=== PATIENT | female | born 1995 | race Asian ===

== ENCOUNTER 2020-02-09 16:36 | Observation (INO) | payer BC, OTHER ==
[~2020-02-09] VITALS: Ht 162.6 cm; Wt 68.1 kg
[2020-02-09 18:19] LABS: BILIRUBIN,URINE NEGATIVE (NEG); CLARITY,URINE CLEAR; COLOR,URINE YELLOW; NITRITE,URINE NEGATIVE (NEG); PROTEIN,URINE NEGATIVE (NEG-TRACE); UROBILINOGEN,URINE 0.2 mg/dL (0.2 mg/dL)
--- NOTE | 2020-02-09 18:19 | ED.ADGEN ---
Past Medical History Past Medical History: Asthma, Migraines Past Surgical History: No Surgical History Smoking Status: Never Smoker Alcohol Use: None General Adult EDM: Chief Complaint: ABDOMINAL PAIN HPI: HPI: Patient is a 25 year old female who presents the emergency department with complaints of right-sided abdominal pain that is worse with movement and palpation since early this morning. Pt awoke at 0700 with the pain. Patient denies any fever, cough, shortness of breath, chest pain, palpitations, sore throat, body aches, fatigue, nausea, vomiting, diarrhea, or sore throat. She denies any dysuria, hematuria, or increased urinary frequency. The patient states that [place] [id number] she did have a painful bowel movement that only produced small firm pieces of stool. She denies any rectal bleeding, back pain, or irregular vaginal discharge. She reports her last menstrual cycle was on January 192019, she denies using any control, she is trying to get . Patient reports that eating and drinking does not make the pain better or worse. She currently rates her pain a 6 out of 10 on the pain scale, she denies any alleviating factors, she has tried taking Pepto-Bismol with no relief in her symptoms. The pain is worse with palpation and movement. Review of Systems: Review of Systems: Complete ROS is negative unless otherwise noted in HPI. Current Medications: Current Medications Medications (Trade) Dose Ordered Sig/Narendra Start Time Stop Time Status Last Admin Dose Admin Fentanyl Citrate (Fentanyl 2ml Vial) 50 mcg 1X ONCE 02/09/20 22:30 02/09/20 22:31 Ondansetron HCl (Zofran) 4 mg PRN Q8HRS PRN 02/09/20 22:30 02/10/20 22:29 Sodium Chloride 1,000 ml @ 1,000 mls/hr 1X ONCE 02/09/20 19:00 02/09/20 19:59 DC 02/09/20 20:28 1,000 MLS/HR Allergies: Allergies: Allergies Coded Allergies Type Severity Reaction Last Updated Verified No Known Drug Allergies 02/09/20 No Physical Exam: PE: See Above Constitutional: Well developed, well nourished, no acute distress, non-toxic appearance. [] HENT: Normocephalic, atraumatic, bilateral external ears normal, nose normal. [] Eyes: PERRLA, EOMI, conjunctiva normal, no discharge. [] Neck: Normal range of motion, no stridor. [] Cardiovascular:Heart rate regular rhythm Lungs & Thorax: Respirations even and unlabored, no retractions, no respiratory distress Abdomen: soft, right upper quadrant and right lower quadrant tenderness to palpation, no rebound tenderness, no guarding, no palpable masses Back: No CVA tenderness Skin: Warm, dry, no erythema, no rash. [] Extremities: No cyanosis, ROM intact, no edema. [] Neurologic: Alert and oriented X 3, no focal deficits noted. [] Psychologic: Affect normal, judgement normal, mood normal. [] Current Patient Data: Labs: Laboratory Tests Test 02/09/20 17:51 02/09/20 17:58 02/09/20 18:37 02/09/20 20:48 Urine Collection Type Unknown Urine Color Yellow Urine Clarity Clear Urine pH 7.0 (<5.0-8.0) Urine Specific [place] 1.010 (1.000-1.030) Urine Protein Negative mg/dL (NEG-TRACE) Urine Glucose (UA) Negative mg/dL (NEG) Urine Ketones (Stick) Negative mg/dL (NEG) Urine Blood Negative (NEG) Urine Nitrite Negative (NEG) Urine Bilirubin Negative (NEG) Urine Urobilinogen Dipstick 0.2 mg/dL (0.2 mg/dL) Urine Leukocyte Esterase Negative (NEG) Urine RBC 0 /HPF (0-2) Urine WBC 0 /HPF (0-4) Urine Squamous Epithelial Cells Few /LPF Urine Bacteria 0 /HPF (0-FEW) POC Urine HCG, Qualitative Hcg negative (Negative) White Blood Count 6.5 x10^3/uL (4.0-11.0) 7.5 x10^3/uL (4.0-11.0) Red Blood Count 3.94 x10^6/uL (3.50-5.40) 3.61 x10^6/uL (3.50-5.40) Hemoglobin 11.4 g/dL (12.0-15.5) L 10.6 g/dL (12.0-15.5) L Hematocrit 34.1 % (36.0-47.0) L 31.5 % (36.0-47.0) L Mean Corpuscular Volume 87 fL (79-100) 87 fL (79-100) Mean Corpuscular Hemoglobin 29 pg (25-35) 29 pg (25-35) Mean Corpuscular Hemoglobin Concent 34 g/dL (31-37) 34 g/dL (31-37) Red Cell Distribution Width 12.7 % (11.5-14.5) 13.0 % (11.5-14.5) Platelet Count 188 x10^3/uL (140-400) 172 x10^3/uL (140-400) Neutrophils (%) (Auto) 50 % (31-73) 57 % (31-73) Lymphocytes (%) (Auto) 41 % (24-48) 34 % (24-48) Monocytes (%) (Auto) 8 % (0-9) 8 % (0-9) Eosinophils (%) (Auto) 0 % (0-3) 0 % (0-3) Basophils (%) (Auto) 0 % (0-3) 1 % (0-3) Neutrophils # (Auto) 3.2 x10^3/uL (1.8-7.7) 4.3 x10^3/uL (1.8-7.7) Lymphocytes # (Auto) 2.7 x10^3/uL (1.0-4.8) 2.5 x10^3/uL (1.0-4.8) Monocytes # (Auto) 0.5 x10^3/uL (0.0-1.1) 0.6 x10^3/uL (0.0-1.1) Eosinophils # (Auto) 0.0 x10^3/uL (0.0-0.7) 0.0 x10^3/uL (0.0-0.7) Basophils # (Auto) 0.0 x10^3/uL (0.0-0.2) 0.0 x10^3/uL (0.0-0.2) Sodium Level 138 mmol/L (136-145) Potassium Level 3.5 mmol/L (3.5-5.1) Chloride Level 104 mmol/L (98-107) Carbon Dioxide Level 27 mmol/L (21-32) Anion Gap 7 (6-14) Blood Urea Nitrogen 8 mg/dL (7-20) Creatinine 0.8 mg/dL (0.6-1.0) Estimated GFR (Cockcroft-Gault) 86.7 BUN/Creatinine Ratio 10 (6-20) Glucose Level 81 mg/dL (70-99) Calcium Level 8.4 mg/dL (8.5-10.1) L Total Bilirubin 0.9 mg/dL (0.2-1.0) Aspartate Amino Transferase (AST) 17 U/L (15-37) Alanine Aminotransferase (ALT) 23 U/L (14-59) Alkaline Phosphatase 52 U/L (46-116) Total Protein 6.7 g/dL (6.4-8.2) Albumin 3.5 g/dL (3.4-5.0) Albumin/Globulin Ratio 1.1 (1.0-1.7) Lipase 88 U/L (73-393) Laboratory Tests 02/09/20 18:37 02/09/20 20:48 Laboratory Tests 02/09/20 18:37 Vital Signs: Vital Signs Date Time Temp Pulse Resp B/P (MAP) Pulse Ox O2 Delivery O2 Flow Rate FiO2 02/09/20 20:41 18 100 Room Air 02/09/20 17:38 98.4 107 110/72 (85) 98.4 EKG: EKG: [] Heart Score: Risk Factors: Risk Factors: DM, Current or recent (<one month) smoker, HTN, HLP, family history of CAD, obesity. Risk Scores: Score 0 - 3: 2.5% MACE over next 6 weeks - Discharge Home Score 4 - 6: 20.3% MACE over next 6 weeks - Admit for Clinical Observation Score 7 - 10: 72.7% MACE over next 6 weeks - Early Invasive Strategies Radiology/Procedures: Radiology/Procedures: [][facility] [address] [place] [address] IMAGING REPORT Signed PATIENT: LEE ANN HENSLEY ACCOUNT: [id number] : 1995 LOCATION: ER AGE: 25 SEX: F EXAM STATUS: REG ER ORD. PHYSICIAN: NURY ROBERT APRN REASON: R sided abd pain, constipation PROCEDURE: CT ABDOMEN PELVIS WO CONTRAST CT ABDOMEN+PELVIS WO INDICATION: Reason: R sided abd pain, constipation / Spl. Instructions: / History: EXAM: Noncontrast CT of the abdomen and pelvis. Coronal and sagittal reformatted images were performed. PQRS compliance statement: One or more of the following individualized dose reduction techniques were utilized for this examination: 1. Automated exposure control 2. Adjustment of the mA and/or kV according to patient size 3. Use of iterative reconstruction technique COMPARISON: None FINDINGS: Moderate amount of high attenuation pelvic fluid, extending up along the right paracolic greater than left paracolic gutters. Lower chest: The visualized lower lungs are aerated. No pleural or pericardial effusion. ABDOMEN: Liver: The noncontrast liver is homogeneous in attenuation. Gallbladder and biliary: Normal gallbladder without radiopaque stone. Normal caliber bile ducts. Spleen: Normal spleen. Pancreas: The noncontrast pancreas is homogeneous in attenuation without peripancreatic inflammatory changes. Adrenal glands: Normal adrenal glands. Kidneys and ureters: No opaque urinary calculi. Normal kidneys and ureters. GI tract: The stomach is decompressed and poorly evaluated. Normal caliber small bowel and colon. Normal appendix. Vascular structures: Normal caliber abdominal aorta. Lymph nodes: No lymphadenopathy in the abdomen or pelvis. PELVIS: Genitourinary system: Urinary bladder is decompressed. Ureters and ovaries are poorly characterized due to pneumoperitoneum SKELETAL STRUCTURES AND SOFT TISSUES: No fracture or destructive lesion in the visualized skeleton. IMPRESSION: Moderate amount of hemoperitoneum, predominantly in the pelvis but extending up along the paracolic gutters. Considerations would include ruptured hemorrhagic ovarian cyst or ruptured ectopic . FOR INTERNAL CODING PURPOSES Critical result: Findings discussed with the emergency department at 02/09/2020 6:55 PM. RESULT CODE: (C) Electronically signed by: Verito Elder MD (02/09/2020 6:55 PM) [facility] DICTATED and SIGNED BY: VERITO ELDER MD DATE: 02/09/20 [id number] 0 Course & Med Decision Making: Course & Med Decision Making Pertinent Labs and Imaging studies reviewed. (See chart for details) 25 year old female who presents to the ER with complaints of R sided abdominal pain since 0700, recent constipation, and hard BM at 1000 this morning. workup includes: abd/pel CT, labs, UA. UCG Pt was given 1 L of NS, 4 mg of zofran, and 25 mcg of fentanyl UA was unremarkable, UCG was negative. blood work is pending, CT abd/pel is pending,. 1899- Report given to Dr. Rubalcava at this time. Pt's VSS at this time. I advised pt that Dr. Rubalcava would be taking over her care at this time. Discussed with Dr. 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 Dragon Disclaimer: Dragon Disclaimer: This electronic medical record was generated, in whole or in part, using a voice recognition dictation system. Departure Departure Impression: Primary Impression: Hemoperitoneum Additional Impressions: Pelvic pain Abdominal pain Disposition: 09 ADMITTED INPT THIS HOSP Condition: STABLE Referrals: MODESTA TABOR MD (PCP) Problem Qualifiers NURY ROBERT APRN Feb 09, 2020 18:19 PAUL RUBALCAVA DO Feb 09, 2020 22:29
[2020-02-09 18:27] LABS: BACTERIA,URINE 0 /HPF (0-FEW); RBC,URINE 0 /HPF (0-2); WBC,URINE 0 /HPF (0-4)
[2020-02-09 18:54] LABS: BASO % 0 % (0-3); EOS % 0 % (0-3); HEMATOCRIT 34.1 % (36.0-47.0); HEMOGLOBIN 11.4 g/dL (12.0-15.5); LYMPH # 2.7 x10^3/uL (1.0-4.8); LYMPH % 41 % (24-48); MEAN CORPUSCULAR HEMOGLOBIN 29 pg (25-35); MEAN CORPUSCULAR HGB CONC 34 g/dL (31-37); MEAN CORPUSCULAR VOLUME 87 fL (79-100); MONO # 0.5 x10^3/uL (0.0-1.1); MONO % 8 % (0-9); NEUT # 3.2 x10^3/uL (1.8-7.7); NEUT % 50 % (31-73); PLATELET COUNT 188 x10^3/uL (140-400); RED BLOOD COUNT 3.94 x10^6/uL (3.50-5.40); RED CELL DISTRIBUTION WIDTH 12.7 % (11.5-14.5); WHITE BLOOD COUNT 6.5 x10^3/uL (4.0-11.0)
--- NOTE | 2020-02-09 18:58 | RAD ---
CT ABDOMEN+PELVIS WO INDICATION: Reason: R sided abd pain, constipation / Spl. Instructions: / History: EXAM: Noncontrast CT of the abdomen and pelvis. Coronal and sagittal reformatted images were perform ed. PQRS compliance statement: One or more of the following individualized dose reduction techniques were utilized for this examinat ion: 1. Automated exposure control 2. Adjustment of the mA and/or kV according to patient size 3. Use of iterative reconstruction technique COMPARISON: None FINDINGS: Moderate amount of high attenuation pelvic fluid, extending up along the right paracolic greater than left paracolic gutters. Lower chest: The visualized lower lungs are aerated. No pleural or pericardial effusion. ABDOMEN: Liver: The noncontrast liver is homogeneous in attenuation. Gallbladder and biliary: Normal gallbladder without radiopaque stone. Normal caliber bile ducts. Spleen: Normal spleen. Pancreas: The noncontrast pancreas is homogeneous in attenuation without peripancreatic inflammatory changes. Adrenal glands: Normal adrenal glands. Kidneys and ureters: No opaque urinary calculi. Normal kidneys and ureters. GI tract: The stomach is decompressed and poorly evaluated. Normal caliber small bowel and colon. Nor mal appendix. Vascular structures: Normal caliber abdominal aorta. Lymph nodes: No lymphadenopathy in the abdomen or pelvis. PELVIS: Genitourinary system: Urinary bladder is decompressed. Ureters and ovaries are poorly characterized d ue to pneumoperitoneum SKELETAL STRUCTURES AND SOFT TISSUES: No fracture or destructive lesion in the visualized skeleton. IMPRESSION: Moderate amount of hemoperitoneum, predominantly in the pelvis but extending up along the paracolic g utters. Considerations would include ruptured hemorrhagic ovarian cyst or ruptured ectopic . FOR INTERNAL CODING PURPOSES Critical result: Findings discussed with the emergency department at 02/09/2020 6:55 PM. RESULT CODE: (C) Electronically signed by: Lg Elder MD (02/09/2020 6:55 PM) [facility]
[2020-02-09] MEDS ORDERED: IV NORMAL SALINE 1000ML BAG 1,000 ML IV ONE ×2 (19:00)
[2020-02-09] MEDS ORDERED: fentaNYL PF VIAL 100 MCG/2 ML VIAL IV ONE (19:00)
[2020-02-09] MEDS ORDERED: ONDANSETRON PF 4 MG/2 ML VIAL. IV ONE (19:00)
[2020-02-09 19:24] LABS: CALCIUM 8.4 mg/dL (8.5-10.1); CREATININE 0.8 mg/dL (0.6-1.0); GFR 86.7; POTASSIUM 3.5 mmol/L (3.5-5.1)
[2020-02-09 19:29] LABS: ALBUMIN 3.5 g/dL (3.4-5.0); ALBUMIN/GLOBULIN RATIO 1.1 (1.0-1.7); TOTAL BILIRUBIN 0.9 mg/dL (0.2-1.0); TOTAL PROTEIN 6.7 g/dL (6.4-8.2)
[2020-02-09] MEDS ORDERED: fentaNYL PF VIAL 100 MCG/2 ML VIAL IVP ONE ×2 (20:45→22:30)
[2020-02-09 20:59] LABS: BASO % 1 % (0-3); EOS % 0 % (0-3); HEMATOCRIT 31.5 % (36.0-47.0); HEMOGLOBIN 10.6 g/dL (12.0-15.5); LYMPH # 2.5 x10^3/uL (1.0-4.8); LYMPH % 34 % (24-48); MEAN CORPUSCULAR HEMOGLOBIN 29 pg (25-35); MEAN CORPUSCULAR HGB CONC 34 g/dL (31-37); MEAN CORPUSCULAR VOLUME 87 fL (79-100); MONO # 0.6 x10^3/uL (0.0-1.1); MONO % 8 % (0-9); NEUT # 4.3 x10^3/uL (1.8-7.7); NEUT % 57 % (31-73); PLATELET COUNT 172 x10^3/uL (140-400); RED BLOOD COUNT 3.61 x10^6/uL (3.50-5.40); WHITE BLOOD COUNT 7.5 x10^3/uL (4.0-11.0)
[2020-02-09] MEDS ORDERED: ONDANSETRON PF 4 MG/2 ML VIAL. IV PRN ×2 (22:30→23:30)
[2020-02-09] MEDS ORDERED: SURGICEL HEMOSTAT 4X8 EACH. ONE (23:06)
[2020-02-09] MEDS ORDERED: ONDANSETRON PF 4 MG/2 ML VIAL. ONE (23:07)
[2020-02-09] MEDS ORDERED: LIDOCAINE 2% PF 5 ML VIAL. ONE (23:07)
[2020-02-09] MEDS ORDERED: PROPOFOL 10 MG/ML (20ML) VIAL. IV ONE (23:07)
[2020-02-09] MEDS ORDERED: DEXAMETHASONE SOD PHOS 4 MG/ML VIAL ONE (23:07)
[2020-02-09] MEDS ORDERED: MIDAZOLAM HCL/PF 2 MG/2 ML VIAL. ONE (23:07)
[2020-02-09] MEDS ORDERED: ROCURONIUM 50 MG/5 ML VIAL. ONE (23:08)
[2020-02-09] MEDS ORDERED: SUCCINYLCHOLINE 200 MG/10 ML VIAL. ONE (23:08)
[2020-02-09] MEDS ORDERED: fentaNYL PF VIAL 100 MCG/2 ML VIAL ONE (23:11)
--- NOTE | 2020-02-09 23:18 | RAD ---
INDICATION: Reason: RT side abd pain;moderate amount of free fluid in abd area;Pelvic Pain / Spl. Ins tructions: / History: COMPARISON: CT from same day TECHNIQUE: Grayscale and color ultrasound images uterus and adnexa. FINDINGS: Uterus: 76 x 39 x 48 mm. Endometrial Stripe: 8 mm. The bilateral ovaries are not seen. Large free fluid is seen with complex component. IMPRESSION: * Large amount of free fluid is seen within the pelvis correlating with the hemoperitoneum seen on CT. The bilateral ovaries are not seen. Electronically signed by: Matt Maldonado MD (02/09/2020 11:15 PM) [id number]
[2020-02-09] MEDS ORDERED: ceFAZolin SODIUM IV Push 1 GM VIAL. IVP ONE (23:27)
[2020-02-09] MEDS ORDERED: fentaNYL PF VIAL 100 MCG/2 ML VIAL IV PRN (23:30)
[2020-02-09] MEDS ORDERED: MORPHINE SULFATE 2 MG/ML VIAL. IV PRN (23:30)
[2020-02-09] MEDS ORDERED: PROCHLORPERAZINE 10 MG/2 ML VIAL. IV PRN (23:30)
[2020-02-09] MEDS ORDERED: BUPIVACAINE-EPI 0.25%-1:200000 MPF 30 ML VIAL. INJ ONE (23:30)
[2020-02-09] MEDS ORDERED: LIDOCAINE 1% PF 2 ML VIAL. ID PRN (23:30)
[2020-02-09] MEDS ORDERED: IV RINGERS,LACTATED 1000ML 1,000 ML IV SCH (23:30)
[2020-02-09] MEDS ORDERED: HYDROmorphone 2 MG/ML VIAL IV PRN (23:30)
[2020-02-10] VITALS (10 sets, daily range): BP systolic 81–126; BP diastolic 42–77
[2020-02-10] MEDS ORDERED: SEVOFLURANE 61 TO 120 MINUTES. IH ONE (00:23)
[2020-02-10] MEDS ORDERED: FAMOTIDINE 20 MG/2 ML VIAL ONE (00:23)
[2020-02-10] MEDS ORDERED: KETOROLAC 30 MG/ML VIAL. ONE (00:36)
--- NOTE | 2020-02-10 00:40 | PDOC ---
BRIEF OPERATIVE NOTE Date: Feb 10, 2020 Pre-Op Diagnosis Ruptured Ovarian Cyst Post-Op Diagnosis ADDY Cyst Ruptured Procedure Performed [facility] Cystectomy Surgeon Dr. Nguyen Anesthesia Type: General Blood Loss 500 ml Specimens Obtained ADDY Cyst wall Findings hemoperitoneum of 500 ml, ADDY Cyst with active bleeding; nml fallopian tubes missy., nml ROV, nml size uterus Complications none Operative Note see dictation ROSALIE NGUYEN Jr, MD Feb 10, 2020 00:40
[2020-02-10] MEDS ORDERED: 0.9 % SODIUM CHLORIDE 10 ML DISP.SYRIN. IV PRN (00:45)
[2020-02-10] MEDS ORDERED: ONDANSETRON PF 4 MG/2 ML VIAL. IV PRN (00:45)
[2020-02-10] MEDS ORDERED: DEXTROSE 50% 25 GM / 50ML DISP.SYRIN. IV PRN (00:45)
[2020-02-10] MEDS ORDERED: CALCIUM CARBONATE 500 MG TAB.CHEW PO PRN (00:45)
[2020-02-10] MEDS ORDERED: PROCHLORPERAZINE 10 MG/2 ML VIAL. IV PRN (00:45)
[2020-02-10] MEDS ORDERED: ZOLPIDEM 5 MG TABLET. PO PRN (00:45)
[2020-02-10] MEDS ORDERED: oxyCODONE/APAP 5/325 1 TAB TABLET PO PRN (00:45)
[2020-02-10] MEDS ORDERED: diphenhydrAMINE 50 MG/ML VIAL IV PRN (00:45)
[2020-02-10] MEDS ORDERED: SIMETHICONE 80 MG TAB.CHEW PO PRN (00:45)
[2020-02-10] MEDS ORDERED: diphenhydrAMINE HCL 25 MG CAPSULE PO PRN (00:45)
--- NOTE | 2020-02-10 00:52 | OP ---
DATE OF SURGERY: PREOPERATIVE DIAGNOSIS: Ruptured ovarian cyst. POSTOPERATIVE DIAGNOSIS: Left ovarian ruptured cyst. PROCEDURE: Laparoscopic left ovarian cystectomy. SURGEON: Luciano Nguyen MD ANESTHESIA: GETA. ESTIMATED BLOOD LOSS: 500 mL, mostly of blood clot already in the abdomen. COMPLICATIONS: None. FINDINGS: Hemoperitoneum of about 500 mL, left ovarian cyst with active bleeding. Normal fallopian tubes bilaterally, normal right ovary, normal size uterus. SUMMARY: This is a 25-year-old 0 with severe abdominal pain that continued throughout the day. She was found to have large hemoperitoneum via a CT scan and abdominal ultrasound. The patient was counseled on risks, benefits and expectations of ovarian cystectomy and removal of the hemoperitoneum and voiced clear understanding to proceed. DESCRIPTION OF PROCEDURE: The patient was taken to surgery suite and placed in dorsal lithotomy position, and prepped with Betadine solution for vaginal prep and ChloraPrep for abdominal prep. After adequate anesthesia, a sponge stick was placed vaginally. Attention was now placed on the abdomen. A small transverse skin incision was made just below the umbilicus with a scalpel. The Veress needle was then placed through the infraumbilical incision site. The abdomen was allowed to insufflate up to 1-1/2 liters CO2 gas. The Veress needle was then removed, 5 mm trocar was placed. Scope was positioned. There was a large amount of hemoperitoneum about 500 mL. Two additional incisions made in the left lower quadrant in which a 5-mm trocar and an 8-mm trocar were placed. With the aid of suction irrigation, the blood clot was all removed. The right fallopian tube and ovary appeared normal. Left fallopian tube appeared normal. Left ovary indicated about 2 cm size cyst with active bleeding. The cyst wall was excised using the EndoShears. The remaining portion of the ovarian cyst wall was fulgurated using monopolar cautery and was then hemostatic. Suction irrigation was utilized to verify good hemostasis. A small amount of normal saline was left in posterior cul-de-sac. The trocars were then removed under direct visualization. The abdomen was allowed to deflate as much as possible along with mechanical manipulation. The three skin incisions were reapproximated using 4-0 Vicryl suture in subcuticular manner. A 0.25% Marcaine with epinephrine was injected at each incision site. The sponge stick was removed. The patient tolerated the procedure well and was taken to recovery room in stable condition. Sponge and needle count correct x 3. LUCIANO NGUYEN MD DR: NGOZI/aliya JOB#: [id number] / [id number]
[2020-02-10] MEDS: fentaNYL PF VIAL 100 MCG/2 ML VIAL IV PRN ×2 (01:03→01:15)
[2020-02-10] MEDS: KETOROLAC 30 MG/ML VIAL. IV PRN ×2 (05:40→12:36)
[2020-02-10] MEDS ORDERED: GABAPENTIN 300 MG CAPSULE. PO SCH (06:00)
[2020-02-10 09:35] LABS: BASO % 0 % (0-3); EOS % 0 % (0-3); HEMATOCRIT 31.4 % (36.0-47.0); HEMOGLOBIN 10.5 g/dL (12.0-15.5); LYMPH % 17 % (24-48); MEAN CORPUSCULAR HEMOGLOBIN 29 pg (25-35); MEAN CORPUSCULAR HGB CONC 33 g/dL (31-37); MEAN CORPUSCULAR VOLUME 87 fL (79-100); MONO # 0.2 x10^3/uL (0.0-1.1); MONO % 3 % (0-9); NEUT # 5.1 x10^3/uL (1.8-7.7); NEUT % 81 % (31-73); PLATELET COUNT 167 x10^3/uL (140-400); RED CELL DISTRIBUTION WIDTH 13.1 % (11.5-14.5); WHITE BLOOD COUNT 6.3 x10^3/uL (4.0-11.0)
--- NOTE | 2020-02-10 12:39 | PDOC ---
SURGICAL PROGRESS NOTE DATE: 02/10/20 TIME: 12:38 Subjective Pt. feeling well. Steristrip reapplied to LLQ incision site. Vital Signs Vital Signs Date Time Temp Pulse Resp B/P (MAP) Pulse Ox O2 Delivery O2 Flow Rate FiO2 02/10/20 10:05 98.1 85 18 95/54 (68) 99 Room Air 98.1 02/10/20 01:03 10.0 I&O Intake and Output 02/10/20 07:00 Intake Total 2500 ml Output Total 950 ml Balance 1550 ml Intake IV Total 2500 ml Output Urine Total 450 ml Estimated Blood Loss 500 ml PATIENT HAS A REYES: No General: Alert, Oriented X3, Cooperative HEENT: Atraumatic Lungs: Clear to auscultation Heart: Regular rate Abdomen: Normal bowel sounds, Soft, No tenderness, No masses Psych/Mental Status: Mental status NL Labs Laboratory Tests Test 02/09/20 17:51 02/09/20 17:58 02/09/20 18:37 02/09/20 20:48 Urine Collection Type Unknown Urine Color Yellow Urine Clarity Clear Urine pH 7.0 (<5.0-8.0) Urine Specific [place] 1.010 (1.000-1.030) Urine Protein Negative mg/dL (NEG-TRACE) Urine Glucose (UA) Negative mg/dL (NEG) Urine Ketones (Stick) Negative mg/dL (NEG) Urine Blood Negative (NEG) Urine Nitrite Negative (NEG) Urine Bilirubin Negative (NEG) Urine Urobilinogen Dipstick 0.2 mg/dL (0.2 mg/dL) Urine Leukocyte Esterase Negative (NEG) Urine RBC 0 /HPF (0-2) Urine WBC 0 /HPF (0-4) Urine Squamous Epithelial Cells Few /LPF Urine Bacteria 0 /HPF (0-FEW) Bedside Urine HCG, Qualitative Hcg negative (Negative) White Blood Count 6.5 x10^3/uL (4.0-11.0) 7.5 x10^3/uL (4.0-11.0) Red Blood Count 3.94 x10^6/uL (3.50-5.40) 3.61 x10^6/uL (3.50-5.40) Hemoglobin 11.4 g/dL (12.0-15.5) 10.6 g/dL (12.0-15.5) Hematocrit 34.1 % (36.0-47.0) 31.5 % (36.0-47.0) Mean Corpuscular Volume 87 fL (79-100) 87 fL (79-100) Mean Corpuscular Hemoglobin 29 pg (25-35) 29 pg (25-35) Mean Corpuscular Hemoglobin Concent 34 g/dL (31-37) 34 g/dL (31-37) Red Cell Distribution Width 12.7 % (11.5-14.5) 13.0 % (11.5-14.5) Platelet Count 188 x10^3/uL (140-400) 172 x10^3/uL (140-400) Neutrophils (%) (Auto) 50 % (31-73) 57 % (31-73) Lymphocytes (%) (Auto) 41 % (24-48) 34 % (24-48) Monocytes (%) (Auto) 8 % (0-9) 8 % (0-9) Eosinophils (%) (Auto) 0 % (0-3) 0 % (0-3) Basophils (%) (Auto) 0 % (0-3) 1 % (0-3) Neutrophils # (Auto) 3.2 x10^3/uL (1.8-7.7) 4.3 x10^3/uL (1.8-7.7) Lymphocytes # (Auto) 2.7 x10^3/uL (1.0-4.8) 2.5 x10^3/uL (1.0-4.8) Monocytes # (Auto) 0.5 x10^3/uL (0.0-1.1) 0.6 x10^3/uL (0.0-1.1) Eosinophils # (Auto) 0.0 x10^3/uL (0.0-0.7) 0.0 x10^3/uL (0.0-0.7) Basophils # (Auto) 0.0 x10^3/uL (0.0-0.2) 0.0 x10^3/uL (0.0-0.2) Sodium Level 138 mmol/L (136-145) Potassium Level 3.5 mmol/L (3.5-5.1) Chloride Level 104 mmol/L (98-107) Carbon Dioxide Level 27 mmol/L (21-32) Anion Gap 7 (6-14) Blood Urea Nitrogen 8 mg/dL (7-20) Creatinine 0.8 mg/dL (0.6-1.0) Estimated GFR (Cockcroft-Gault) 86.7 BUN/Creatinine Ratio 10 (6-20) Glucose Level 81 mg/dL (70-99) Calcium Level 8.4 mg/dL (8.5-10.1) Total Bilirubin 0.9 mg/dL (0.2-1.0) Aspartate Amino Transf (AST/SGOT) 17 U/L (15-37) Alanine Aminotransferase (ALT/SGPT) 23 U/L (14-59) Alkaline Phosphatase 52 U/L (46-116) Total Protein 6.7 g/dL (6.4-8.2) Albumin 3.5 g/dL (3.4-5.0) Albumin/Globulin Ratio 1.1 (1.0-1.7) Lipase 88 U/L (73-393) Test 02/09/20 22:23 02/10/20 08:45 SARS-CoV-2 Antigen (Rapid) Negative (NEGATIVE) White Blood Count 6.3 x10^3/uL (4.0-11.0) Red Blood Count 3.60 x10^6/uL (3.50-5.40) Hemoglobin 10.5 g/dL (12.0-15.5) Hematocrit 31.4 % (36.0-47.0) Mean Corpuscular Volume 87 fL (79-100) Mean Corpuscular Hemoglobin 29 pg (25-35) Mean Corpuscular Hemoglobin Concent 33 g/dL (31-37) Red Cell Distribution Width 13.1 % (11.5-14.5) Platelet Count 167 x10^3/uL (140-400) Neutrophils (%) (Auto) 81 % (31-73) Lymphocytes (%) (Auto) 17 % (24-48) Monocytes (%) (Auto) 3 % (0-9) Eosinophils (%) (Auto) 0 % (0-3) Basophils (%) (Auto) 0 % (0-3) Neutrophils # (Auto) 5.1 x10^3/uL (1.8-7.7) Lymphocytes # (Auto) 1.0 x10^3/uL (1.0-4.8) Monocytes # (Auto) 0.2 x10^3/uL (0.0-1.1) Eosinophils # (Auto) 0.0 x10^3/uL (0.0-0.7) Basophils # (Auto) 0.0 x10^3/uL (0.0-0.2) Laboratory Tests Test 02/09/20 17:51 02/09/20 17:58 02/09/20 18:37 02/09/20 20:48 Urine Collection Type Unknown Urine Color Yellow Urine Clarity Clear Urine pH 7.0 (<5.0-8.0) Urine Specific [place] 1.010 (1.000-1.030) Urine Protein Negative mg/dL (NEG-TRACE) Urine Glucose (UA) Negative mg/dL (NEG) Urine Ketones (Stick) Negative mg/dL (NEG) Urine Blood Negative (NEG) Urine Nitrite Negative (NEG) Urine Bilirubin Negative (NEG) Urine Urobilinogen Dipstick 0.2 mg/dL (0.2 mg/dL) Urine Leukocyte Esterase Negative (NEG) Urine RBC 0 /HPF (0-2) Urine WBC 0 /HPF (0-4) Urine Squamous Epithelial Cells Few /LPF Urine Bacteria 0 /HPF (0-FEW) Bedside Urine HCG, Qualitative Hcg negative (Negative) White Blood Count 6.5 x10^3/uL (4.0-11.0) 7.5 x10^3/uL (4.0-11.0) Red Blood Count 3.94 x10^6/uL (3.50-5.40) 3.61 x10^6/uL (3.50-5.40) Hemoglobin 11.4 g/dL (12.0-15.5) 10.6 g/dL (12.0-15.5) Hematocrit 34.1 % (36.0-47.0) 31.5 % (36.0-47.0) Mean Corpuscular Volume 87 fL (79-100) 87 fL (79-100) Mean Corpuscular Hemoglobin 29 pg (25-35) 29 pg (25-35) Mean Corpuscular Hemoglobin Concent 34 g/dL (31-37) 34 g/dL (31-37) Red Cell Distribution Width 12.7 % (11.5-14.5) 13.0 % (11.5-14.5) Platelet Count 188 x10^3/uL (140-400) 172 x10^3/uL (140-400) Neutrophils (%) (Auto) 50 % (31-73) 57 % (31-73) Lymphocytes (%) (Auto) 41 % (24-48) 34 % (24-48) Monocytes (%) (Auto) 8 % (0-9) 8 % (0-9) Eosinophils (%) (Auto) 0 % (0-3) 0 % (0-3) Basophils (%) (Auto) 0 % (0-3) 1 % (0-3) Neutrophils # (Auto) 3.2 x10^3/uL (1.8-7.7) 4.3 x10^3/uL (1.8-7.7) Lymphocytes # (Auto) 2.7 x10^3/uL (1.0-4.8) 2.5 x10^3/uL (1.0-4.8) Monocytes # (Auto) 0.5 x10^3/uL (0.0-1.1) 0.6 x10^3/uL (0.0-1.1) Eosinophils # (Auto) 0.0 x10^3/uL (0.0-0.7) 0.0 x10^3/uL (0.0-0.7) Basophils # (Auto) 0.0 x10^3/uL (0.0-0.2) 0.0 x10^3/uL (0.0-0.2) Sodium Level 138 mmol/L (136-145) Potassium Level 3.5 mmol/L (3.5-5.1) Chloride Level 104 mmol/L (98-107) Carbon Dioxide Level 27 mmol/L (21-32) Anion Gap 7 (6-14) Blood Urea Nitrogen 8 mg/dL (7-20) Creatinine 0.8 mg/dL (0.6-1.0) Estimated GFR (Cockcroft-Gault) 86.7 BUN/Creatinine Ratio 10 (6-20) Glucose Level 81 mg/dL (70-99) Calcium Level 8.4 mg/dL (8.5-10.1) Total Bilirubin 0.9 mg/dL (0.2-1.0) Aspartate Amino Transf (AST/SGOT) 17 U/L (15-37) Alanine Aminotransferase (ALT/SGPT) 23 U/L (14-59) Alkaline Phosphatase 52 U/L (46-116) Total Protein 6.7 g/dL (6.4-8.2) Albumin 3.5 g/dL (3.4-5.0) Albumin/Globulin Ratio 1.1 (1.0-1.7) Lipase 88 U/L (73-393) Test 02/09/20 22:23 02/10/20 08:45 SARS-CoV-2 Antigen (Rapid) Negative (NEGATIVE) White Blood Count 6.3 x10^3/uL (4.0-11.0) Red Blood Count 3.60 x10^6/uL (3.50-5.40) Hemoglobin 10.5 g/dL (12.0-15.5) Hematocrit 31.4 % (36.0-47.0) Mean Corpuscular Volume 87 fL (79-100) Mean Corpuscular Hemoglobin 29 pg (25-35) Mean Corpuscular Hemoglobin Concent 33 g/dL (31-37) Red Cell Distribution Width 13.1 % (11.5-14.5) Platelet Count 167 x10^3/uL (140-400) Neutrophils (%) (Auto) 81 % (31-73) Lymphocytes (%) (Auto) 17 % (24-48) Monocytes (%) (Auto) 3 % (0-9) Eosinophils (%) (Auto) 0 % (0-3) Basophils (%) (Auto) 0 % (0-3) Neutrophils # (Auto) 5.1 x10^3/uL (1.8-7.7) Lymphocytes # (Auto) 1.0 x10^3/uL (1.0-4.8) Monocytes # (Auto) 0.2 x10^3/uL (0.0-1.1) Eosinophils # (Auto) 0.0 x10^3/uL (0.0-0.7) Basophils # (Auto) 0.0 x10^3/uL (0.0-0.2) Problem List Problems Medical Problems: (1) Abdominal pain Status: Acute (2) Hemoperitoneum Status: Acute (3) Pelvic pain Status: Acute Assessment/Plan A: POD# 1 s/p LPSC ADDY Cystectomy P: D/c home. F/u in 1 week. Justicifation of Admission Dx: Justifications for Admission: Justification of Admission Dx: Yes ROSALIE CALDWELL Jr, MD Feb 10, 2020 12:39
[2020-02-10] MEDS ORDERED: OXYC1TAB15 PO (12:41)
--- NOTE | 2020-02-10 12:42 | DISCH ---
DISCHARGE INSTRUCTIONS Condition on Discharge Condition on Discharge: Stable Activity After Discharge Activity Instructions for Disc: Activity as tolerated Lifting Instructions after Dis: No heavy lifting Driving Instructions after Dis: Do not drive today Diet after Discharge Diet after Discharge: Regular Contacting the DRJovanni after DC Call your doctor for: Concerns you may have Follow-Up Follow up with: Dr. Armendariz in 1 week ROSALIE ARMENDARIZ Jr, MD Feb 10, 2020 12:42
--- NOTE | 2020-02-12 17:09 | PATHOLOGY ---
[facility] Accession Number: [id number] . 01 Material submitted: . ovary - LEFT OVARIAN CYST WALL. Modifiers: left, wall . 01 Clinical history: . RUPTURED OVARIAN CYST WITH LARGE PELVIC ABDOMINAL HEMATOMA . 02 Diagnosis: Ovarian tissue, laparoscopic left ovarian cystectomy: - Hemorrhagic corpus luteal cyst. LBQ 02/12/2020 1535 Local . 02 Comment: There is no evidence of malignancy. (JPM/db; 02/12/2020) . 02 Electronically signed: . Manan Kumari MD, Pathologist NPI- [id number] . 01 Gross description: . The specimen is received in formalin, labeled "[place], left ovarian cyst wall" and consists of 2 segments of purple tissue measuring 0.7 x 0.4 x 0.2 cm and 1.4 x 0.4 x 0.3 cm which are entirely submitted in A1. (SDY; 02/11/2020) SYU/SYU 02/11/2020 1711 Local . 02 Pathologist provided ICD-10: N83.12 . 02 CPT . 326424 Specimen Comment: A courtesy copy of this report has been sent to [phone], [phone] Specimen Comment: [phone], Specimen Comment: Report sent to ,DR RUBALCAVA / DR TABOR Performed at: 01 [facility] [address], [place] [id number] MD Isiah Bloom MD Phone: [phone] Performed at: 02 [facility] [address] [place], [place] [id number] MD Manan Kumari MD Phone: [phone]
== END 2020-02-10 13:20 | disposition home or self-care (01) ==
LOC: ER 16:36 → 3 NORTH 22:19
PROVIDERS: ADMIT Obstetrics & Gynecology; ATTEND Obstetrics & Gynecology
DX: N83.202 Unspecified ovarian cyst, left side (principal); Z20.828 Contact with and (suspected) exposure to other viral communicable diseases; J45.909 Unspecified asthma, uncomplicated; K59.00 Constipation, unspecified; K66.1 Hemoperitoneum
CPT/HCPCS: 36415; 58662; 74176; 76856; 80053; 81001; 81025; 83690; 85025; 86850; 86900; 86901; 87426; 88305; 96361; 96374; 96375; 96376; 99285; G0378; G0379; J0330; J0690; J0780; J1100; J1885; J2250; J2405; J2704; J3010; J3490; J7030; U0003